=== PATIENT | male | born 1955 | race Caucasian/White ===

== ENCOUNTER 2016-11-15 18:28 | Inpatient (IN) | payer OTHER ==
--- NOTE | ~2016-11-15 | HP ---
History And Physical [place] [id number] [facility] [place]. [address] NAME: SARAH MCHUGH : 51 STATUS : ADM IN PAT#: [id number] AGE: 61 ADM/REG DATE : 11/15/16 MR#: [id number] REPORT SERV DATE: 11/15/16 DICTATED BY: MILAGROS HUDSON DATE: 11/15/16 REPORT STATUS : Draft TRANSCRIBED BY: MODL DATE: 11/15/16 DATE OF ADMISSION: 11/15/2016 CHIEF COMPLAINT: Abdominal pain and diarrhea. HISTORY OF PRESENT ILLNESS: The patient is a 61-year-old male. 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 The patient comes in with a complaint of increasing diarrhea since Sunday. He states his normal routine is intermittent diarrhea, he states depending on what he eats, sometimes he will have a lot of stomach growling, some pain and cramping and sometimes multiple bowel movements a day. The symptoms seemed to change Sunday, however, where he felt very tired, weak. Started experiencing pain, mid epigastric, laterally and somewhat inferiorly. He does not really tie it to particular event or ingestion. He states prior to Sunday he would occasionally get some sharp right quadrant brief pain, but they would seem to resolve. Sunday, he had continued symptoms and subjective fever. Sunday, he had some slight decrease in the pain, but still a lot of fatigue, decreased appetite, although the bowel movement seem to be slowing down some. He had an appointment with Dr. Okeefe today. Lab work revealed a leukocytosis and CT reviewed what appeared to be a colitis, possibly an infectious colitis. Dr. Okeefe asked for admission for further evaluation. The patient has had three bowel movements since he presented to the hospital. PAST MEDICAL HISTORY: As covered above. PAST SURGICAL HISTORY: In addition to the CABG, he had an appendectomy. CURRENT MEDICATIONS: His pharmacy list is pending. He states he takes a baby aspirin, a beta shaun and NANCY inhibitor, and a statin. ALLERGIES: NONE. FAMILY HISTORY: Both parents are . Mother, pancreatic cancer. Father, dementia. SOCIAL HISTORY: He will drink socially on the weekends. No tobacco. REVIEW OF SYSTEMS: HEENT: No complaints. CARDIOVASCULAR: No recent chest pain, or failure or palpitations symptoms. PULMONARY: No cough, shortness of breath. GI: In addition to above, he denies any vomiting. : No complaints. NEUROMUSCULOSKELETAL: He complains only of fatigue. Otherwise, review of systems is negative. PHYSICAL EXAMINATION: History And Physical [address] [address] NAME: SARAH MCHUGH : 51 STATUS : ADM IN [facility]#: [id number] AGE: 61 ADM/REG DATE : 11/15/16 MR#: [id number] REPORT SERV DATE: 11/15/16 DICTATED BY: MILAGROS HUDSON DATE: 11/15/16 REPORT STATUS : Draft TRANSCRIBED BY: NICOLAS DATE: 11/15/16 VITAL SIGNS: Vital signs are currently pending. GENERAL: He is awake, alert, and oriented. HEENT: Normocephalic, atraumatic. Sclerae nonicteric. NECK: Supple. HEART: Regular rate and rhythm without murmurs, gallops, or rubs. LUNGS: Clear to auscultation without rhonchi, rales, or wheezes. ABDOMEN: He does have tenderness in mid epigastric area, less so on the upper lateral sides and very little inferiorly. EXTREMITIES: Show no clubbing, cyanosis, or edema. NEUROLOGICAL: Nonfocal. LABORATORY DATA: As forwarded from Dr. Okeefe's office. White count 14,000, H and H 14.3 and 42.2, platelets were 163. BMP, sodium 140, potassium 4.1, chloride 102, CO2 of 30, BUN was 13. CT scan done today shows thickened appearance of the ascending colon, as well as a proximal mid transverse colon with pericolonic fat stranding adjacent to the ascending and proximal transverse colon most compatible with the nonspecific colitis. No evidence for abscess or perforation. The descending colon has a mildly thickened appearance, this may be due to under distention. Enlarged prostate. Atherosclerosis. There was no mention of liver, gallbladder, or pancreas abnormalities. ASSESSMENT: Colitis, possible infectious, possible ischemic. PLAN: 1. The patient has been admitted. 2. Per Dr. Okeefe's recommendations, mesenteric ultrasound, stool for pathogens. No antibiotic exposure, but we will check a C. diff, IV fluids, pain control, antidiarrheals if the C. diff is negative. Further evaluation pending above. SUNIL/NICOLAS Milagros Hudson M.D. / [id number] CC: Zakia Wilkerson M.D.
--- NOTE | ~2016-11-15 | CN ---
Consultation Report [facility] [address] [place]. [address] NAME: SARAH JACKSON : 51 STATUS : ADM IN PAT#: [id number] AGE: 61 ADM/REG DATE : 11/15/16 MR#: [id number] REPORT SERV DATE: 11/16/16 DICTATED BY: BRISA WILLAMS DATE: 11/16/16 REPORT STATUS : Draft TRANSCRIBED BY: MODL DATE: 11/16/16 GI CONSULTATION DATE OF CONSULTATION: 11/16/2016 REASON FOR CONSULTATION: Evaluation and management of colitis, hematochezia, leukocytosis. HISTORY OF PRESENT ILLNESS: Mr. Jackson is a pleasant 61-year-old male patient, who is known to Dr. Robert Okeefe in the outpatient setting, who presented after being seen by Dr. Okeefe in the office on 11/[address]. He had presented to the office with complaints of abdominal discomfort, "chilling," diarrhea. He tells me he has been having hematochezia. He states his symptoms started on 11/12/2016. Secondary to the persistence of his symptoms, he saw Dr. Okeefe yesterday, who ordered a CT scan of the abdomen and pelvis with contrast, showing a thickened appearance of the ascending colon as well as the proximal and mid transverse colon with pericolonic fat stranding adjacent to the ascending and proximal transverse colon. Findings are most compatible with a nonspecific colitis. No abscess or perforation was seen. The descending colon also had a mildly thickened appearance, but there was underdistention and that was felt secondary to that. He had in the outpatient setting an elevated white blood cell count of 14. He had a hemoglobin of 14.3 and a hematocrit of 42.2. He has had stool studies sent here only for C diff, which returned negative. I have seen Mr. Jackson this morning. He states that he still has abdominal pain, which is baseline to what it was when he saw Dr. Okeefe and could possibly be mildly increased. He has had several small bowel movements throughout the night that were bloody. I have discussed with him recommendation would be for colonoscopy, he seemed unsure if he wants to proceed with this. I did discuss with him the rationale for colonoscopy, as well as I did discuss with him if no colonoscopy obtained while in the hospital, he would need one in six to eight weeks after discharge in the outpatient setting. His last colonoscopy was done in 04/2015. The findings on that exam were normal exam, but he had an inadequate prep, but there were random biopsies taken throughout his colon, which were negative. His prior colonoscopy before the one in 2014 was in 2011 with diverticulosis and nonbleeding internal hemorrhoids. He is to have a mesenteric ultrasound today and states that he will decide if he wants to proceed with colonoscopy before the end of the day. I discussed risks, benefits, alternatives, and complications with him to include, but not limited to risk of bleeding, perforation, infection, reaction to medication, as well as cardiac and pulmonary side effects. He denies any recent antibiotics. He denies any new medications, whether it be [id number], herbals, prescriptions. He states that he was at the [employer] game on Sunday. He did eat out at the park, but nothing since that time outside of the house. PAST MEDICAL HISTORY: Coronary artery disease, history of CABG, hypertension, hyperlipidemia, obesity, diverticulosis, internal hemorrhoids, IBS, GERD. PAST SURGICAL HISTORY: CABG and appendectomy. Consultation Report [address] [place]. [address] NAME: SARAH JACKSON : 51 STATUS : ADM IN [facility]#: [id number] AGE: 61 ADM/REG DATE : 11/15/16 MR#: [id number] REPORT SERV DATE: 11/16/16 DICTATED BY: BRISA WILLAMS DATE: 11/16/16 REPORT STATUS : Draft TRANSCRIBED BY: NICOLAS DATE: 11/16/16 FAMILY HISTORY: Pancreatic cancer in his mother, who is . SOCIAL HISTORY: Social alcohol. Denies tobacco. Denies illicits. ALLERGIES: NO KNOWN ALLERGIES. HOME MEDICATIONS: Consist of Tylenol, Uroxatral, aspirin, Lexapro, Visine, Proventil, Toprol, Protonix, Zocor, Desyrel, and Ambien. REVIEW OF SYSTEMS: A 10-point review of systems has been obtained with pertinent positives being addressed in the history of present illness. LABORATORY DATA: Sodium is 138, potassium is 3.8, BUN is 12, creatinine is 1.06. White count on 11/15 was 14, hemoglobin was 14.3 with hematocrit of 42.2. CT scan has been discussed in the history of present illness. PHYSICAL EXAMINATION: VITAL SIGNS: Temperature is 98.1, temperature max has been 99.2; pulse of 53; respirations of 18; blood pressure is 163/77. NEURO: Reveals an alert male, sitting up in the bed with no focal deficits. GENERAL: Cooperative, in no apparent distress. He is awake, alert, and oriented x3. HEAD, EARS, EYES, NOSE, AND THROAT: Anicteric. Pupils equal, round, reactive to light and accommodation. Normocephalic and atraumatic. NECK: No JVD. No palpable nodes. Supple. ABDOMEN: Obese with tenderness to palpation, mild, diffusely. No organomegaly appreciated. EXTREMITIES: No edema. Normal distal pulses. SKIN: Warm, dry, and intact. ASSESSMENT: 1. Acute colitis of the ascending, transverse, and descending colon. 2. Hematochezia secondary to acute colitis. 3. Abdominal pain secondary to acute colitis. 4. Leukocytosis secondary to acute colitis. PLAN: 1. Antibiotic therapy to continue. 2. We will obtain other stool studies, ova and parasites, WBCs, cultures and sensitivities. 3. Recommending colonoscopy at this time of admission, but the patient is unsure at my time of rounding if he wants to proceed. If not, we recommend six to eight weeks colonoscopy as an outpatient. 4. We will add scheduled Levsin. 5. Follow up labs. 6. Clear liquid diet after mesenteric ultrasound. Consultation Report [address] [place]. [address] NAME: SARAH JACKSON : 51 STATUS : ADM IN [facility]#: [id number] AGE: 61 ADM/REG DATE : 11/15/16 MR#: [id number] REPORT SERV DATE: 11/16/16 DICTATED BY: BRISA WILLAMS DATE: 11/16/16 REPORT STATUS : Draft TRANSCRIBED BY: NICOLAS DATE: 11/16/16 We will follow. PIERCE/NICOLAS JEANETTE Link / [id number] CC: Zakia Wilkerson M.D.
--- NOTE | ~2016-11-15 | DS ---
Discharge Summary [facility] [address] [place]. [address] NAME: SARAH MCHUGH : 51 STATUS : ADM IN [facility]#: [id number] AGE: 61 ADM/REG DATE : 11/15/16 MR#: [id number] REPORT SERV DATE: 11/17/16 DICTATED BY: MILAGROS HUDSON DATE: 11/17/16 REPORT STATUS : Draft TRANSCRIBED BY: MODL DATE: 11/17/16 ADMISSION DATE: 11/15/2016 DISCHARGE DATE: 11/17/2016 FINAL HOSPITAL DIAGNOSES: 1. Colitis, suspected infectious. 2. History of coronary artery disease, hypertension, and hyperlipidemia. CONSULTATIONS: GI. PROCEDURES: 1. Mesenteric ultrasound done on 11/16/2016 showing Doppler findings not correlating with CT findings of 11/15/2016. There was KATERIN stenosis, but there was a patent SMA and his symptoms were in the ascending proximal mid transverse colon on the CT. 2. Stool study showing negative for C. difficile and negative for Giardia and crypto. CURRENT PHYSICAL FINDINGS AND HISTORY OF PRESENT ILLNESS: Please see the dictated H and P by myself. In brief, the patient is a 61-year-old male with the above medical history, was accepted as a direct admit from Dr. Okeefe's office. The patient had several days of abdominal pain, diarrhea, and decreased p.o. intake. Prior to presentation, he received blood work and CT outpatient, and was admitted for colitis and leukocytosis. Initial vital signs; blood pressure of 152/68. He had no significant fever here with T-max being 99.2 on 11/16/2016. Vital signs, otherwise remained stable. Laboratory work showed a procalcitonin of 0.22. BMP x2 unremarkable. LFTs were within normal range. Lipase was 76, lactate was 0.8. White count was 10,000 on 11/16/2016. H and H were 13.2 and 38.4. The patient was admitted. He was started on antibiotics after his C. difficile was checked and negative. He was placed on a liquid diet. Stool studies were requested. Mesenteric ultrasound was requested. IV fluids were started. Reasonable pain medications were administered. He also received some Imodium. GI was consulted. I did discuss with him doing an endoscopy as apparently his prep on his last was not complete, the patient declined. He seemed to respond to antibiotics with decreasing symptoms, pain, stooling, increased appetite, and improved blood count. He tolerated meals x2 on the day of discharge. He requested to go home to follow up with Dr. Okeefe outpatient. GI confirmed. This seemed reasonable to me as the patient's lab work improved, his symptoms markedly improved, and he has the ability to return should there be any problems or complications, all his questions were answered. He was discharged in stable condition. Prescriptions were written for Levaquin 750 one per day and Flagyl 500 t.i.d. to complete a ten-day course. Levsin 0.125 q.6 p.r.n. He will continue his Zocor 20, Desyrel 50, Ambien 5, Protonix 40, Tylenol p.r.n., Visine Tears, aspirin 81, Uroxatral 10, Lexapro 20, Prinivil 10, and Toprol-XL 25. He was also written a prescription for Florastor b.i.d. to carry through the course of his antibiotics. TLF/MODL Milagros Em Discharge Summary [address] [address] NAME: SARAH MCHUGH : 51 STATUS : ADM IN [facility]#: [id number] AGE: 61 ADM/REG DATE : 11/15/16 MR#: [id number] REPORT SERV DATE: 11/17/16 DICTATED BY: MILAGROS HUDSON DATE: 11/17/16 REPORT STATUS : Draft TRANSCRIBED BY: MODL DATE: 11/17/16 Zakia Hudson / [id number] CC: Zakia Wilkerson M.D.
[~2016-11-15 18:28] MED LIST: ALTA5 PO; ALTACE10 MG PO; AMBIEN CR12.5 MG PO; ASAEC PO; ATV1 PO; BENTYL10 PO; FISH OIL1200 MG PO; FISH-EPA1000 MG PO; FLOMAX4 PO; IMDUR30 PO; LEXAPRO20 PO; LOP25 PO; LOP50 PO; LUNESTA3 MG PO; NITROSTAT0.4 MG SL; PREV15 PO; PREV30 PO; TOPXL25 PO; UROXATRAL PO; VYTORIN 10/20 T1 TAB PO; ZOCOR20 PO
[2016-11-15 21:05] LABS: A/G RATIO 0.8 (0.7-1.9); ALBUMIN 3.1 G/DL (3.5-5.0); ALKALINE PHOSPHATASE 51 U/L (45-117); BUN (BLOOD UREA NITROGEN) 12 MG/DL (6-23); CALCIUM, SERUM 8.5 MG/DL (8.5-10.4); CHLORIDE, SERUM 101 MMOL/L (96-112); CO2 (CARBON DIOXIDE) 27 MMOL/L (24-34); CREATININE 1.06 MG/DL (0.70-1.30); GFR AFRICAN AMERICAN 86 ML/MIN (>=60); GFR NON AFRICAN AMERICAN 74 ML/MIN (>=60); GLUCOSE, SERUM 86 MG/DL (60-99); POTASSIUM, SERUM 3.8 MMOL/L (3.5-5.3); SGOT(AST) 9 U/L (5-40); SGPT(ALT) 15 U/L (5-65); SODIUM, SERUM 138 MMOL/L (135-148); TOTAL BILIRUBIN 0.6 MG/DL (0-1.2); TOTAL PROTEIN 7.1 G/DL (6.0-8.5)
[2016-11-15 21:53] LABS: PROCALCITONIN 0.22 ng/mL (<0.5)
[2016-11-16] MEDS ORDERED: PROTONIX PO (03:41)
[2016-11-16] MEDS ORDERED: TOPXL25 PO (03:41)
[2016-11-16] MEDS ORDERED: ZOCOR20 PO (03:41)
[2016-11-16] MEDS ORDERED: AMB5 PO (03:42)
[2016-11-16] MEDS ORDERED: T PO (03:42)
[2016-11-16] MEDS ORDERED: PRIN10 PO (03:42)
[2016-11-16] MEDS ORDERED: UROXATRAL PO (03:42)
[2016-11-16] MEDS ORDERED: TRAZ50 PO (03:42)
[2016-11-16] MEDS ORDERED: HALF81 PO (03:43)
[2016-11-16] MEDS ORDERED: LEXAPRO20 PO (03:43)
[2016-11-16] MEDS ORDERED: VISINE TEARS15 ML OPH (03:43)
[2016-11-17 06:48] LABS: BASOPHILS 0.3 %; BASOPHILS ABSOLUTE 0.03 10/3/uL (0.0-0.16); EOSINOPHILS 3.1 %; EOSINOPHILS ABSOLUTE 0.31 10/3/uL (0.0-0.53); HEMOGLOBIN 13.2 g/dL (13.6-17.8); IMMATURE GRANULOCYTES 0.3 %; IMMATURE GRANULOCYTES ABSOLUTE 0.03 10/3/uL (0.0-0.11); LYMPHOCYTES 17.5 %; LYMPHOCYTES ABSOLUTE 1.75 10/3/uL (0.67-4.30); MEAN CORPUS HGB CONC 34.4 g/dL (32.0-36.0); MEAN CORPUSCULAR HEMOGLOB 32.1 pg (26.0-34.0); MEAN CORPUSCULAR VOLUME 93.4 fL (80-100); MEAN PLATELET VOLUME 8.8 fL (9.2-13.0); MONOCYTES 10.4 %; MONOCYTES ABSOLUTE 1.04 10/3/uL (0.21-1.20); NEUTROPHILS 68.4 %; NEUTROPHILS ABSOLUTE 6.86 10/3/uL (2.02-8.40); PLATELET COUNT 163 10/3/uL (150-400); RBC DISTRIBUTION WIDTH 12.5 % (12.0-16.0); RED CELL COUNT 4.11 10/6/uL (4.7-6.1)
[2016-11-17 06:52] LABS: HEMATOCRIT 38.4 % (40.0-51.0); MANUAL DIFF NO %
[2016-11-17 06:56] LABS: INTERNATIONAL NORMAL RATI 1.2 UNITS (-); PROTIME (NOT ORD) 14.8 SEC (12.0-14.5)
[2016-11-17 07:04] LABS: BUN (BLOOD UREA NITROGEN) 9 MG/DL (6-23); CALCIUM, SERUM 8.1 MG/DL (8.5-10.4); CHLORIDE, SERUM 109 MMOL/L (96-112); CO2 (CARBON DIOXIDE) 24 MMOL/L (24-34); CREATININE 0.98 MG/DL (0.70-1.30); GFR AFRICAN AMERICAN 95 ML/MIN (>=60); GFR NON AFRICAN AMERICAN 82 ML/MIN (>=60); GLUCOSE, SERUM 90 MG/DL (60-99); POTASSIUM, SERUM 3.8 MMOL/L (3.5-5.3); SODIUM, SERUM 143 MMOL/L (135-148)
[2016-11-17] MEDS ORDERED: LEVSINTAB PO (14:35)
[2016-11-17] MEDS ORDERED: LEVAQUIN750 MG PO (14:35)
[2016-11-17] MEDS ORDERED: FLORASTOR250 MG PO (14:36)
[2016-11-17] MEDS ORDERED: FLAG500TAB PO (14:46)
[2016-11-21] MEDS ORDERED: PROBIOTIC (16:03)
== END 2016-11-17 15:52 | disposition home or self-care (01) | DRG 392 ==
LOC: 4SO 18:28
PROVIDERS: Internal Medicine; Nurse Practitioner Family
DX: A09 Infectious gastroenteritis and colitis, unspecified (principal); K55.1 Chronic vascular disorders of intestine; K92.1 Melena; I25.10 Atherosclerotic heart disease of native coronary artery without angina pectoris; Z95.1 Presence of aortocoronary bypass graft; E78.5 Hyperlipidemia, unspecified; I10 Essential (primary) hypertension; Z79.82 Long term (current) use of aspirin; K57.90 Diverticulosis of intestine, part unspecified, without perforation or abscess without bleeding
CPT/HCPCS: 74177; 80048; 80053; 82150; 83605; 83690; 83735; 84145; 85025; 85610; 87045; 87046; 87046-59; 87328; 87329; 87493; 87493-59; 87899; 87899-59; 89055; 93975; A9270-GY; J0360; J1956; J2405